=== PATIENT | female | born 1970 | race Caucasian/White ===

== ENCOUNTER → 2024-06-25 09:23 | Outpatient (REF) | payer OTHER, SELFPAY | LOC: RAD 09:23 | PROVIDERS: ATTENDING PHYSICIAN Hospitalist | DX: M25.562 Pain in left knee (principal) | CPT/HCPCS: 73560 ==

== ENCOUNTER → 2024-06-29 19:07 | Outpatient (REF) | payer OTHER, SELFPAY | LOC: MRI 3T 19:07 | PROVIDERS: ATTENDING PHYSICIAN Physical Medicine & Rehabilitation | DX: S06.0X0A Concussion without loss of consciousness, initial encounter (principal) | CPT/HCPCS: 70553; A9575 ==